=== PATIENT | female | born 1950 | race Hispanic/Latino ===

== ENCOUNTER → 2018-05-08 | Outpatient (CLI) | payer OTHER ==
[~2018-05-08] MED LIST: IOHEXOL-350 50ML VIAL IV ONE
== END | disposition home or self-care (01) ==
LOC: RAH 08:23
PROVIDERS: ATTEND Internal Medicine
DX: J84.10 Pulmonary fibrosis, unspecified (principal); N28.1 Cyst of kidney, acquired; K76.0 Fatty (change of) liver, not elsewhere classified
CPT/HCPCS: 71270; Q9967

== ENCOUNTER 2021-10-10 16:07 | Emergency (ER) | payer OTHER ==
[~2021-10-10] VITALS: Ht 147.3 cm; Wt 93.9 kg
[2021-10-10] MEDS ORDERED: HYDROCODONE/ACETAMINOPHEN 5/325 MG TAB PO ONE (16:30)
[2021-10-10] MEDS ORDERED: NAPR-1180 PO (16:46)
[2021-10-10 17:03] VITALS: BP 143/79
== END 2021-10-10 17:05 | disposition home or self-care (01) ==
LOC: EDH 16:07
DX: S83.92XA Sprain of unspecified site of left knee, initial encounter (principal); M17.12 Unilateral primary osteoarthritis, left knee; I10 Essential (primary) hypertension; E78.00 Pure hypercholesterolemia, unspecified; E11.9 Type 2 diabetes mellitus without complications; Z98.890 Other specified postprocedural states; X58.XXXA Exposure to other specified factors, initial encounter; Y93.89 Activity, other specified; Y92.89 Other specified places as the place of occurrence of the external cause; Y99.8 Other external cause status
CPT/HCPCS: 73562

== ENCOUNTER → 2021-10-31 | Outpatient (CLI) | payer OTHER ==
[~2021-10-31] MED LIST changes: -IOHEXOL-350 50ML VIAL IV ONE; +NAPR-1180 PO
== END | disposition home or self-care (01) ==
LOC: RAH 14:51
PROVIDERS: ATTEND Orthopaedic Surgery Sports Medicine
DX: S83.242A Other tear of medial meniscus, current injury, left knee, initial encounter (principal); M17.12 Unilateral primary osteoarthritis, left knee; X58.XXXA Exposure to other specified factors, initial encounter; Y93.89 Activity, other specified; Y92.89 Other specified places as the place of occurrence of the external cause; Y99.8 Other external cause status
CPT/HCPCS: 73721

== ENCOUNTER → 2021-11-27 | Outpatient (CLI) | payer OTHER | END | disposition home or self-care (01) | LOC: SHCH 11:18 | PROVIDERS: ATTEND Internal Medicine Cardiovascular Disease | DX: I20.9 Angina pectoris, unspecified (principal); I51.7 Cardiomegaly | CPT/HCPCS: 93306 ==

== ENCOUNTER 2022-12-22 09:57 | Emergency (ER) | payer OTHER ==
[~2022-12-22] VITALS: Ht 147.3 cm; Wt 102.1 kg
[2022-12-22] MEDS ORDERED: LABETALOL 20MG VIAL IV ONE (11:30)
[2022-12-22 11:45] LABS: BASOPHILS # (AUTO) 0.03 K/uL (0.00-0.20); BASOPHILS % (AUTO) 0.4 % (0.0-5.0); EOSINOPHILS # (AUTO) 0.06 K/uL (0.00-0.70); EOSINOPHILS % (AUTO) 0.8 % (0.0-8.0); IMMATURE GRANULOCYTE ABSOLUTE 0.03 K/uL (0-1); LYMPHOCYTES # (AUTO) 1.1 K/uL (1.0-4.8); LYMPHOCYTES % (AUTO) 14.8 % (21.0-51.0); MEAN CORPUSCULAR HEMOGLOBIN 27.4 pg (27.0-33.0); MEAN CORPUSCULAR HGB CONC 32.2 g/dL (32.0-36.0); MEAN CORPUSCULAR VOLUME 85.2 fL (79-99); MONOCYTES # (AUTO) 0.4 K/uL (0.1-1.0); MONOCYTES % (AUTO) 4.6 % (3.0-13.0); PLATELET COUNT (AUTO) 253 K/uL (130-400); RED BLOOD CELL COUNT(AUTO) 4.81 MIL/uL (4.00-5.50); RED CELL DISTRIBUTION WIDTH 13.3 % (11.0-15.5); WHITE BLOOD COUNT (AUTO) 7.6 K/uL (4.8-10.8)
[2022-12-22 11:59] LABS: INR 0.93 (0.85-1.15); PROTHROMBIN TIME 10.8 SEC (9.6-11.6)
[2022-12-22 12:00] LABS: PARTIAL THROMBOPLASTIN TIME 27.6 SEC (26.3-35.5)
[2022-12-22 12:13] LABS: B-TYPE NATRIURETIC PEPTIDE 100 pg/mL (0-100)
[2022-12-22 12:19] LABS: CREATININE 0.9 mg/dL (0.5-1.5); POTASSIUM 3.8 mmol/L (3.5-5.1)
[2022-12-22 12:23] LABS: ALBUMIN 3.6 g/dL (3.5-5.0); BILIRUBIN,TOTAL 0.6 mg/dL (0.2-1.0); TOTAL PROTEIN, SERUM 8.3 g/dL (6.0-8.3)
[2022-12-22 13:09] VITALS: PULSE 63
[2022-12-22] MEDS ORDERED: METO-296 PO (13:31)
[2022-12-22 13:37] VITALS: BP 133/74; PULSE 63; RESP 18; O2SAT 95
== END 2022-12-22 13:53 | disposition home or self-care (01) ==
LOC: EDH 09:57
DX: I67.4 Hypertensive encephalopathy (principal); E11.9 Type 2 diabetes mellitus without complications; E66.9 Obesity, unspecified; E78.00 Pure hypercholesterolemia, unspecified; I11.9 Hypertensive heart disease without heart failure; K21.9 Gastro-esophageal reflux disease without esophagitis; R07.9 Chest pain, unspecified
CPT/HCPCS: 99285; 82550; 83721; 84484; 80053; 83880; 85025; 85610; 85730; 36415; 71045; 70450; 93005; J3490

== ENCOUNTER → 2023-01-09 | Outpatient (CLI) | payer OTHER ==
[~2023-01-09] MED LIST changes: +METO-296 PO
== END | disposition home or self-care (01) ==
LOC: RAH 08:25
PROVIDERS: ATTEND Family Medicine
DX: R22.41 Localized swelling, mass and lump, right lower limb (principal)
CPT/HCPCS: 93971

== ENCOUNTER → 2023-06-16 | Outpatient (CLI) | payer OTHER | END | disposition home or self-care (01) | LOC: SHCH 14:57 | PROVIDERS: ATTEND Internal Medicine Cardiovascular Disease | DX: I11.9 Hypertensive heart disease without heart failure (principal); I20.0 Unstable angina; E78.5 Hyperlipidemia, unspecified | CPT/HCPCS: 93306 ==

== ENCOUNTER → 2023-06-20 | Outpatient (CLI) | payer OTHER ==
[~2023-06-20] MED LIST changes: +REGADENOSON 0.4 MG/5 ML PF SYG IVP ONE
== END | disposition home or self-care (01) ==
LOC: SHCH 08:04
PROVIDERS: ATTEND Internal Medicine Cardiovascular Disease
DX: I20.0 Unstable angina (principal)
CPT/HCPCS: 78452; 96374; 93017; J2785; A9500 ×2

== ENCOUNTER → 2023-09-22 | Outpatient (CLI) | payer OTHER ==
[~2023-09-22] MED LIST changes: +IOHEXOL 350 MG/ML 100ML INFUS..BTL IV ONE; +METOPROLOL TARTRATE 1 MG/ML 5ML VIAL IV ONE; -REGADENOSON 0.4 MG/5 ML PF SYG IVP ONE
== END | disposition home or self-care (01) ==
LOC: RAH 08:23
PROVIDERS: ATTEND Internal Medicine Cardiovascular Disease
DX: I25.119 Atherosclerotic heart disease of native coronary artery with unspecified angina pectoris (principal); R06.09 Other forms of dyspnea; R07.9 Chest pain, unspecified
CPT/HCPCS: 75574; J3490; Q9967

== ENCOUNTER 2024-11-05 06:19 | Day surgery (SDC) | payer OTHER, MEDICAID ==
[2024-11-01 10:23] VITALS: BP 165/84; PULSE 76; RESP 17; TEMP 97.3
[2024-11-01 10:26] LABS: BASOPHILS # (AUTO) 0.04 K/uL (0.00-0.20); BASOPHILS % (AUTO) 0.5 % (0.0-5.0); EOSINOPHILS % (AUTO) 2.5 % (0.0-8.0); HEMATOCRIT 41.4 % (36-48); IMMATURE GRANULOCYTE ABSOLUTE 0.02 K/uL (0-1); LYMPHOCYTES # (AUTO) 1.4 K/uL (1.0-4.8); LYMPHOCYTES % (AUTO) 17.6 % (21.0-51.0); MEAN CORPUSCULAR HEMOGLOBIN 27.6 pg (27.0-33.0); MEAN CORPUSCULAR HGB CONC 31.9 g/dL (32.0-36.0); MEAN CORPUSCULAR VOLUME 86.6 fL (79-99); MONOCYTES # (AUTO) 0.6 K/uL (0.1-1.0); MONOCYTES % (AUTO) 7.6 % (3.0-13.0); NEUTROPHILS # (AUTO) 5.8 K/uL (1.8-7.7); NEUTROPHILS % (AUTO) 71.6 % (40.0-77.0); PLATELET COUNT (AUTO) 248 K/uL (130-400); RED BLOOD CELL COUNT(AUTO) 4.78 MIL/uL (4.00-5.50); RED CELL DISTRIBUTION WIDTH 13.8 % (11.0-15.5); WHITE BLOOD COUNT (AUTO) 8.1 K/uL (4.8-10.8)
[2024-11-01 10:31] LABS: APPEARANCE,URINE CLOUDY (CLEAR); BILIRUBIN,URINE NEGATIVE (NEGATIVE); COLOR,URINE LIGHT-YELLOW (YELLOW); GLUCOSE, URINE (UA) NEGATIVE (NEGATIVE); KETONES,URINE NEGATIVE (NEGATIVE); LEUKOCYTE ESTERASE ,URINE 75 Leu/uL (NEGATIVE); NITRATE,URINE NEGATIVE (NEGATIVE); OCCULT BLOOD,URINE NEGATIVE (NEGATIVE); PH,URINE 6.5 (5.0-8.0); PROTEIN,URINE NEGATIVE (NEGATIVE); UROBILINOGEN,URINE 0.2 mg/dL (0.2-1.0)
[2024-11-01 10:37] LABS: INR 0.99 (0.85-1.15); PROTHROMBIN TIME 10.5 SEC (9.6-11.6)
[2024-11-01 10:39] LABS: ADD UA MICROSCOPIC YES
[2024-11-01 10:39] LABS: PARTIAL THROMBOPLASTIN TIME 27.7 SEC (26.3-35.5)
[2024-11-01 10:41] LABS: SQUAMOUS EPITHELIAL CELL,UR MOD /HPF (0-2)
[2024-11-01 10:44] LABS: ALBUMIN 3.6 g/dL (3.5-5.0); BILIRUBIN,TOTAL 0.7 mg/dL (0.2-1.0); CREATININE 1.1 mg/dL (0.5-1.0); POTASSIUM 3.4 mmol/L (3.5-5.1); TOTAL PROTEIN, SERUM 8.1 g/dL (6.0-8.3)
--- NOTE | 2024-11-01 11:13 | HMCIMG ---
Exam Type: CHEST 1VW Clinical Information: PREOP Comparison: None Findings: The lungs are clear. The heart is normal in size. There is tortuosity of the aorta which artifactually enlarges the mediastinum. No actual mediastinal pathology is detected. IMPRESSION: Tortuous aorta. Clear lungs.
--- NOTE | 2024-11-01 11:57 | EKG ---
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
--- NOTE | 2024-11-04 14:00 | NUR ---
RE: LABS REPORTED UA AND URINE CX RESULTS TO JOHN/DR DINERO, NO NEW ORDERS RECEIVED.
[2024-11-05] VITALS (12 sets, daily range): BP systolic 126–169; BP diastolic 67–84; PULSE 68–80; RESP 16–19; TEMP 97.3–97.7
[~2024-11-05] VITALS: Ht 152.4 cm; Wt 99.7 kg
[~2024-11-05 06:19] MED LIST changes: +AEC81 PO; +ALBUTEROL IH; +ATOR20TA65 PO; +CALC-866 PO; +FLUT15.845 NASAL; +FLUT1BLS9 IH; -IOHEXOL 350 MG/ML 100ML INFUS..BTL IV ONE; +ISOS30TA92 PO; +LOSA1TAB54 PO; +METF-444 PO; -METO-296 PO; -METOPROLOL TARTRATE 1 MG/ML 5ML VIAL IV ONE; -NAPR-1180 PO; +OMEP20CA12 PO; +TIRZ7.5P SQ
[2024-11-05] MEDS: 0.9%NACL 1000ML 1,000 ML IV ONE (07:14)
[2024-11-05] MEDS: ceFAZolin SODIUM 2 GM VIAL ONE (07:14)
[2024-11-05] MEDS ORDERED: FAMOTIDINE 20MG VIAL IV ONE ×2 (07:24→10:37)
[2024-11-05] MEDS ORDERED: acetaMINOPHEN 0 ML ONE (07:24)
[2024-11-05] MEDS ORDERED: LATA2.5D14 OP (07:26)
--- NOTE | 2024-11-05 08:55 | NUR ---
U/S GD LT BREAST WIRE LOCALIZATION PROCEDURE PERFORMED BY DR Jalen LOZOYA. PUNCTURE SITE LT BREAST AT 3 0'CLOCK AND PATIENT TOLERATED PROCEDURE WELL. 20G X 7CM WIRE PLACED TO LT BREAST NODULE AND MAMMO IMAGES TAKEN. WIRE PLACEMENT VERIFIED BY DR Jalen LOZOYA. END OF PROCEDURE AT 0840. WIRE SECURED WITH DRESSING AND NO BLEEDING NOTED. PATIENT TRANSPORTED TO OR HOLDING AREA VIA STRETCHERS AT 0855 AND BEDSIDE REPORT GIVEN TO Norman BHARDWAJ RN.
--- NOTE | 2024-11-05 09:45 | HMCIMG ---
Mammographically guided needle localization HISTORY: Left breast 3:00 position ultrasound-guided needle localization TECHNIQUE: Under ultrasound guidance a localized needle was advanced through the lesion. The needle was then removed leaving the localizing wire anchored with its tip 1 cm beyond the lesion margin. Sterile dressing applied. The patient tolerated procedure well and was discharged from the department in good condition. Patient was sent to mammography unit for confirmation of placement. Impression: Ultrasound-guided wire localization of left breast lesion, pre op.
--- NOTE | 2024-11-05 10:14 | HMCIMG ---
Exam Type: MAMMO DX UNILATERAL LEFT Clinical Information: POST LT BREAST NEEDLE LOCATIZATION 3 O'CLOCK FOR SURGICAL INTERVENTION Comparison: None Findings and impression: Post localization mammogram demonstrates wire in place.
[2024-11-05] MEDS ORDERED: proPOFol 10 MG/ML 20ML VIAL IV ONE (10:33)
[2024-11-05] MEDS ORDERED: dexaMETHasone SOD PHOSPHATE 4 MG/ML 1ML VIAL ONE (10:33)
[2024-11-05] MEDS ORDERED: LIDOCAINE PF 100MG/5ML (2%) SYRINGE 5ML ONE (10:33)
[2024-11-05] MEDS ORDERED: MIDAZOLAM HCL 1 MG/ML 2ML VIAL ONE (10:33)
[2024-11-05] MEDS ORDERED: FENTanyl CITRate PF 50 MCG/1 ML 2ML VIAL ONE (10:33)
[2024-11-05] MEDS ORDERED: ondanSETRON 4MG INJ ONE (10:33)
[2024-11-05] MEDS ORDERED: acetaMINOPHEN 100 ML ONE (10:37)
[2024-11-05] MEDS ORDERED: rocuRONium bROMide 10MG/1ML 5ML VL ONE (11:32)
[2024-11-05] MEDS: ceFAZolin SODIUM 2 GM VIAL IVPB ONE (11:40)
[2024-11-05] MEDS: BUPIvacaine/PF 0.25% 30ML VIAL IJ ONE (11:50)
[2024-11-05] MEDS: LIDOCAINE HCL 1% 20 ML VIAL ONE (11:50)
[2024-11-05] MEDS ORDERED: ePHEDrine SULFate 50 MG/ML AMPULE ONE (11:58)
--- NOTE | 2024-11-05 12:54 | OP ---
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 Once this was done by radiology she is brought to the operating room. She is placed on the operating table in a supine position. Once general endotracheal anesthesia is achieved patient's bilateral chest and breast are prepped and draped in sterile fashion. Using ultrasound guidance I identified where the actual marker was in the direction of the wire and marked this at the skin to help us guide as it was very close to the nipple-areolar complex. We then proceeded to create a hidden scar left periareolar incision from the 12:00 to the 6 o'clock position on the lateral aspect of the nipple. Dissected through the skin and subcutaneous tissue to expose breast tissue. We then created a skin flaps superiorly inferiorly and laterally that were thick and undermined wire. We identified our wire and follow did as it went on the . We dissected circumferentially around it and then posteriorly dissected all the way around. We then excised the specimen completely with the wire as part of our specimen. We marked our specimen with short white suture lateral margin, long white marked the medial margin, long black blaine the superficial margin, the short black blaine the cephalad margin. We sent off the specimen to mammography to confirm we had good margins and that our clip was within our specimen. Hemostasis was obtained within the cavity. The the partial mastectomy defect was measured at 6 x 5 x 4 cm after we had excised our specimen. I then proceeded to create skin and subcutaneous skin flaps to release the breast tissue underneath to create tissue advancement flap for closure. I then released the breast tissue of the pectoralis fascia to create tissue advancement flap for the breast tissue. The length of the tunneling required was additional 3 cm in each direction. Once the flaps were created I proceeded to blaine the inside of the specimen cavity with metal clips, in case we have to return for reexcision we know where the cavity was located. I then proceeded to approximate the flaps in 3 layers using 3-0 Vicryl in interrupted fashion.. We then proceeded to do a deep dermal sutures as well with 3-0 Vicryl. And then proceeded to close the skin with a 4-0 Monocryl in running subcuticular fashion. The total area of the advancement flap was 30 cm. Once we had heard back from mammography that we had the clip within our specimen with good margins we then proceeded to apply the Dermabond over top of our incision. All counts were correct x2 at the end of the procedure. Patient tolerated the procedure well. ESTIMATED BLOOD LOSS: Minimal Specimens: Left breast mass Complications: None immediate Devices left in place: None AMANDA DINERO MD Nov 05, 2024 12:54
[2024-11-05] MEDS: FENTanyl CITRate PF 50 MCG/1 ML 2ML VIAL ONE (12:57)
--- NOTE | 2024-11-08 10:16 | HMCIMG ---
SURGICAL SPECIMEN REASON: LT BREAST SPECIMEN. COMPARISON: None TECHNIQUE: Soft tissue specimen x-ray was obtained. FINDINGS: There is evidence of microsurgical clip within the soft tissue specimen. IMPRESSION: Findings at described above.
== END 2024-11-05 14:20 | disposition home or self-care (01) ==
LOC: DAH 06:19
PROVIDERS: ATTEND Student in an Organized Health Care Education/Training Program
DX: D24.2 Benign neoplasm of left breast (principal); N60.12 Diffuse cystic mastopathy of left breast; E11.9 Type 2 diabetes mellitus without complications; D24.1 Benign neoplasm of right breast; I10 Essential (primary) hypertension; E78.00 Pure hypercholesterolemia, unspecified; J45.909 Unspecified asthma, uncomplicated; E66.9 Obesity, unspecified; Z68.41 Body mass index [BMI] 40.0-44.9, adult; Z79.899 Other long term (current) drug therapy; Z79.82 Long term (current) use of aspirin; Z79.84 Long term (current) use of oral hypoglycemic drugs; Z79.01 Long term (current) use of anticoagulants
CPT/HCPCS: 80053; 85025; 85610; 85730; 87086; 81001; 36415; 71045; 93005; 19301; 77065; 82948 ×2; 88307; 76098; 19285; A6260; J1100; A4663; J3490 ×3; J3010 ×2; J7030; J0665; J2003; J2250; J2704; J2405; J0690 ×2; C1819; A4930 ×2; A4649; A4215; A4222; A4221; A4216; A4223 ×2; A4600; 76942